=== PATIENT | female | born 1980 | race Caucasian/White ===

== ENCOUNTER 2017-06-15 22:21 | Emergency (ER) | payer OTHER ==
[2017-06-15] MEDS ORDERED: KETOROLAC TROMETHAMINE 30 MG/ML VIAL IV ONE (23:37)
[2017-06-15] MEDS ORDERED: NORMAL SALINE 1,000 ML IV ONE (23:37)
--- NOTE | 2017-06-15 23:38 | ERNOTE ---
ER Female HPI Date of Service: 06/15/17 Stated Complaint: UTI, "SOMETHING WRONG WITH KIDNEY" Presenting Symptoms: dysuria Time Seen by Provider: 06/15/17 23:29 Source: patient Immunizations: IMMUNIZATION HX Immunizations Up to Date Yes History of Influenza Vaccine Yes Hx Pneumococcal Vaccination No Allergies/Adverse Reactions: Allergies morphine Allergy (Verified 06/15/17 22:47) chest pain Home Medications: HOME MEDICATIONS Medroxyprogesterone Acet [Depo-Provera] 400 mg IM Q90D 06/15/13 [Last Taken Unknown] Ibuprofen [Motrin] 600 mg PO Q6H PRN #40 tab 10/19/15 [Last Taken Unknown] Acetaminophen 500 mg PO PRN PRN 06/15/17 [Last Taken Unknown] Sulfamethoxazole/Trimethoprim [Bactrim Ds] 1 tab PO BID #20 tab 06/16/17 [Last Taken Unknown] - History of Present Illness Narrative: Patient is a 37-year-old female established patient of Dr. Palomares, who presents to the emergency room for evaluation of right flank pain. Patient reports onset of pain was approximately 11 AM but she had to work at the [employer] was not able to comment she got off. She denies fevers or chills she reported 2 week history of onset of dysuria which she had been putting off for evaluation. Patient reported increased burning on urination and frequency up. She was trying to just flushes and drink lots of fluids at work but the pain in her flank continue to worsen throughout the evening and is here for evaluation up. Patient's past history was reviewed and significant for chronic back pain. She has known degenerative disc disease of thecervical and lumbar spine. Date (Duration): 06/15/17 Time (Timing): 11:00 Timing: Present: getting worse Quality: Present: severe Onset Location: Present: right flank Radiation: Present: none Activities at Onset: Present: other - normal work Prior Abdominal Problems: Present: none, other - she has had urinary symptoms x 2 weeks. Modifying Factors - (Improves): Present: other - tylenol 3 gm today 1000 mg three doses today Modifying Factors - (Worsens): Present: movement Associated Symptoms: Present: polyuria, other - right flank pain . Absent: fever/chills, diaphoresis, nausea, vomiting Review of Systems - Review of Systems Constitutional: Absent: fever, chills EYE: Present: no symptoms reported ENT: Present: no symptoms reported Respiratory: Present: no symptoms reported Cardiology: Present: no symptoms reported Gastrointestinal/Abdominal: Present: no symptoms reported Genitourinary: Present: frequency, pain, dysuria. Absent: hematuria Musculoskeletal: Present: no symptoms reported Skin: Present: no symptoms reported Neurological: Present: no symptoms reported Endocrine: Present: no symptoms reported Hematologic/Lymphatic: Present: no symptoms reported All Other Systems: All systems neg except as marked - Narrative Narrative: All past medical history past social history past surgical history, social history family history occasions and allergies reviewed with patient. - Patient's Past Medical History Patient History - Medical: Chronic Pain Patient History - Cardiac/Respiratory: No pertinent hx Patient History - Cancer: No Hx of Cancer Patient History - Surgical Procedures: D & C, Tubal Ligation, T & A, Other Patient History - Other: None LMP (females 10-50): 3 weeks - Family History Mother Family History - Medical: Diabetes Type 2 Family History - Cardiac/Respiratory: Coronary Heart Disease Father Family History - Cardiac/Respiratory: COPD - Social History Living Situations: other Abuse History: No History of abuse Psych History: No pertinent hx Does anyone smoke in the home?: Yes Smoking Status: Current every day smoker Have you smoked in the past 12 months: Yes Do you dip or chew tobacco: No Alcohol Use: none Drug Use: none - Immunizations Immunizations Up to Date: Yes Hx Pneumococcal Vaccination: No History of Influenza Vaccine: Yes Physical Exam - Physical Exam General Appearance: Present: wd/wn, alert, no apparent distress Head Exam: Present: normal inspection, no evidence of injury Eye Exam: Normal inspection: bilateral, PERRL: bilateral, EOMI: bilateral Ears, Nose, Throat: Present: normal ENT inspection, normal pharynx Neck: Present: normal inspection, nontender Respiratory: Present: no respiratory distress, normal breath sounds, no accessory muscle use, chest nontender, lungs clear Cardiovascular/Chest: Present: regular rate, rhythm, no murmur, normal peripheral pulses Peripheral Pulses: N=norm/S=strong/W=weak/B=bound/A=absent: Carotid (R): Normal , Carotid (L): Normal Gastrointestinal/Abdominal: Present: normal bowel sounds, tenderness - right flank , other - right flank pain Rectal Exam: Present: deferred Back Exam: Present: CVA tenderness (R) Extremity Exam: Present: normal inspection, normal range of motion Neurological Exam: Present: alert, oriented, normal mood/affect, no motor/ sensory deficits Skin Exam: Present: normal color, warm/dry Lymphatic Exam: Present: no adenopathy Pelvic Exam: Present: deferred ED Progress - Results and Orders Patient's Lab Results:: I have reviewed the patient's lab results. Results and Orders: Laboratory Tests 06/15/17 Unknown Urine Color Dark yellow Urine Appearance Cloudy Urine pH 6.0 Ur Specific Haskell 1.025 Urine Protein 100 H Urine Glucose (UA) Negative Urine Ketones Negative Urine Blood 250 H Urine Nitrate Positive H Urine Bilirubin Negative Prot Sulfosalicylic Acd 2+ H Urine Urobilinogen Normal Ur Leukocyte Esterase 100 H Urine RBC 0-5 Urine WBC >50 H Ur Epithelial Cells 5-10 H Urine Bacteria 3+ H Urine Trichomonas Few - 1+ H Urine Culture Comments Culture to follow - Vital Signs Patient's Vital Signs:: I have reviewed the patient's vital signs. Vital Signs: Vital Signs 06/15/17 22:41 Temperature 36.6 C Pulse Rate 73 Respiratory 16 Rate Blood Pressure 155/91 O2 Sat by Pulse 100 Oximetry - Progress/Reassessment Chief Complaint: Genitourinary Problem Progress:: Pain free at discharge - she rated pain at 3/10 on discharge, by the time antibiotic was completed pain had resolved. Plan - Plan Plan: Patient stable for discharge. Departure Clinical Impression: Renal colic on right side, Pyelonephritis - Departure Disposition: Home self-care Condition: Good Instructions: Pyelonephritis, Adult, [id number] Additional Instructions: Drink lots of fluid, see your doctor at completion of the antibiotic, today you received a dose of Intravenous antibiotic Ceftriaxone to help with the severe upper urinary tract infection. Monitor for fevers, chills, nausea and vomiting. Referrals: Noe Phipps MD [Primary Care Provider] - Prescriptions: Sulfamethoxazole/Trimethoprim [Bactrim Ds] 1 tab PO BID #20 tab
[2017-06-15] MEDS ORDERED: KETOROLAC TROMETHAMINE 30 MG/ML VIAL ONE (23:44)
[2017-06-15 23:53] VITALS: BP 149/89
[2017-06-16 00:05] LABS: Urine Bilirubin Negative (NEGATIVE); Urine Blood 250 /ul (NEGATIVE); Urine Ketone Negative (NEGATIVE); Urine Protein 100 mg/dL (NEGATIVE); Urine Specific Gravity 1.025 SP.GR. (1.005-1.010); Urine Urobilinogen Normal (NORMAL)
[2017-06-16 00:11] LABS: Urine Appearance Cloudy; Urine Color Dark Yellow; Urine Nitrite Positive (NEGATIVE); Urine WBC >50 /hpf (0-5)
[2017-06-16 00:12] LABS: Urine Bacteria 3+; Urine RBC 0-5 /hpf (0-5); Urine Trichomonas Few - 1+
== END 2017-06-16 01:00 | disposition home or self-care (01) ==
LOC: ER 22:21
DX: N23 Unspecified renal colic (principal); N12 Tubulo-interstitial nephritis, not specified as acute or chronic; F17.200 Nicotine dependence, unspecified, uncomplicated

== ENCOUNTER 2017-09-11 11:40 | Day surgery (SDC) | payer OTHER ==
[~2017-09-11 11:40] MED LIST: RINGER'S SOLUTION,LACTATED 1,000 ML IV PRN; ceFAZolin SODIUM 2 GM in DEXTROSE 5 % IN WATER 50 ML IV PRN
[2017-09-11] MEDS ORDERED: RINGER'S SOLUTION,LACTATED 1,000 ML IV ONE ×3 (12:15→16:04)
[2017-09-11] MEDS ORDERED: LIDOCAINE HCL/EPINEPHRINE 50 ML VIAL IJ ONE (13:00)
[2017-09-11] MEDS ORDERED: SCOPOLAMINE HYDROBROMIDE 1.5 MG PATC TD ONE (13:00)
[2017-09-11] MEDS ORDERED: PROMETHAZINE HCL 12.5 MG in DEXTROSE 5 % IN WATER 50 ML IV PRN ×2 (14:42)
[2017-09-11] MEDS ORDERED: diphenhydrAMINE HCL 50 MG/ML VIAL IV PRN (14:42)
[2017-09-11] MEDS ORDERED: NALOXONE HCL 0.4 MG/ML VIAL IV PRN (14:42)
[2017-09-11] MEDS ORDERED: HYDROmorphone HCL 2 MG/ML VIAL IV PRN (14:42)
--- NOTE | 2017-09-11 14:51 | OR ---
Operative Report - Dictated Report Narrative: Date: 09/11/2017 Preoperative Diagnosis: Abnormal uterine bleeding, MALI 1 Postoperative Diagnosis: Same Procedure: Total Vaginal Hysterectomy, modified Phan's culdoplasty, cystoscopy Surgeon: Mariam Mckeon D.O. Anesthesia: General with local Findings: Normal-appearing cervix, uterus, tubes, ovaries Fluids: 800 ml EBL: 60 ml Pathology: Uterus and cervix Drains: none Straight cath after procedure: 50 ml of clear yellow urine Complications: None Condition: Stable Procedure: The patient was taken to the operating room with IV fluids running. She was placed in the dorsal lithotomy position after general anesthesia was placed. She was prepped and draped in the normal sterile fashion. A weighted speculum was placed in the posterior aspect of the vagina and a Sanjeev retractor was placed in the anterior aspect of the vagina. Briesky retractors were placed laterally. The cervix was grasped with two single tooth tenaculums. The cervix was injected circumferentially with 0.5% marcaine with epinephrine. A circumferential incision was made around the cervix using a Oscar Thomas scissors. Sharp dissection was then performed using the Oscar Thomas scissors. Attention was turned posteriorly. Sharp dissection was performed until the posterior peritoneal reflection was clearly visualized. The peritoneum was then entered sharply. Location was confirmed by visualization of bowel. Goose neck retractor was then placed into the abdominal cavity. Attention was then turned anteriorly. Sharp dissection was performed until the anterior peritoneal reflection was visualized. It was entered sharply using the Oscar Thomas scissors. Location was cofirmed by visualization of bowel. The Sanjeev retraction was then placed into the abdominal cavity. Attention was then turned posteriorly. The uterosacral ligaments were clamped with the a curved Rosibel, transected and suture ligated using 0 vicryl. These ligatures were tagged for later modified Phan's culdoplasty. Attention was then turned to the Cardinal ligaments and uterine vessels. The cardinal ligaments, uterine vessels and curnual angles were sequentually were clamped, cauterized and transected with the Ligasure. Hemostasis was noted. The tubes and ovaries were briefly visualized and were grossly normal. The uterosacral tags were then utilized for culdoplasty. The suture was driven through the uterosacral ligament, reefed across the peritoneum posteriorly and brought out the midline of the vaginal cuff. The vaginal cuff was closed in a vertical fashion with 2-0 vicryl in a running locked stitch for excellent hemostasis. The culdoplasty stitch was tied down to elevate the vaginal cuff. Cystoscopy was then performed. Clear yellow urine was noted. No injury to the bladder was noted and bilateral ureteral jets were noted. The cystoscope was then removed and bladder was then drained. Clear yellow urine was drained. The patient tolerated the procedure well. Sponge, lap and instrument counts were correct x2. The patient was taken to the recovery room in stable condition.
[2017-09-11] MEDS ORDERED: IBUPROFEN 800 MG TABLET PO PRN (15:16)
[2017-09-11] MEDS ORDERED: HYDROcodone/ACETAMINOPHEN 1 EACH TABLET PO PRN (15:29)
[2017-09-11 16:48] VITALS: BP 122/67
== END 2017-09-11 11:41 | disposition home or self-care (01) ==
LOC: AMB 11:40
PROVIDERS: ATTEND Obstetrics & Gynecology Gynecologic Oncology
PROC: 0UTC7ZZ Resection of Cervix, Via Natural or Artificial Opening (ICD-10-PCS; 2017-09-11)
PROC: 0UT97ZZ Resection of Uterus, Via Natural or Artificial Opening (ICD-10-PCS; principal; 2017-09-11 13:00)
DX: N80.0 Endometriosis of uterus (principal); N87.0 Mild cervical dysplasia; J44.9 Chronic obstructive pulmonary disease, unspecified; E78.5 Hyperlipidemia, unspecified; E66.01 Morbid (severe) obesity due to excess calories; Z68.41 Body mass index [BMI] 40.0-44.9, adult; F17.200 Nicotine dependence, unspecified, uncomplicated